=== PATIENT | female | born 2000 | race Two or more races ===

== ENCOUNTER 2024-12-13 02:31 | Emergency (ER) | payer MEDICAID ==
[~2024-12-13] VITALS: Ht 162.6 cm; Wt 70.8 kg
[2024-12-13] MEDS ORDERED: ONDANSETRON HCL/PF 4 MG/2 ML VIAL ONE ×2 (04:40→06:14)
[2024-12-13] MEDS: IV NS 0.9% 1,000 ML BAG IV ONE ×2 (04:53→06:22)
[2024-12-13] MEDS: ONDANSETRON HCL/PF 4 MG/2 ML VIAL IV ONE ×2 (04:53→06:22)
[2024-12-13 04:58] LABS: BASOPHILS % (AUTO) 0.1 % (0.0-2.0); EOSINOPHILS % (AUTO) 0.1 % (0.0-6.0); HEMATOCRIT 51 % (33-45); LYMPHOCYTES # (AUTO) 0.8 K/uL (0.8-4.8); LYMPHOCYTES % (AUTO) 3.8 % (20.0-44.0); MEAN CORPUSCULAR HEMOGLOBIN 32 PG (26.0-33.0); MEAN CORPUSCULAR HGB CONC 34 g/dl (31.0-36.0); MEAN CORPUSCULAR VOLUME 95 fL (82-100); MONOCYTES # (AUTO) 1.6 K/uL (0.1-1.30); MONOCYTES % (AUTO) 7.9 % (2.0-12.0); NEUTROPHILS # (AUTO) 18.1 K/uL (1.8-8.9); NEUTROPHILS % (AUTO) 88.1 % (43.0-81.0); PLATELET COUNT (AUTO) 368 K/uL (150-450); RED BLOOD CELL COUNT(AUTO) 5.37 MIL/uL (4.0-5.2); RED CELL DISTRIBUTION WIDTH 14.3 % (11.5-15.0); WHITE BLOOD COUNT (AUTO) 20.5 K/uL (4.3-11.0)
[2024-12-13 05:05] LABS: CALCIUM, SERUM 9.4 mg/dL (8.5-10.1); CREATININE 0.6 mg/dL (0.6-1.3); POTASSIUM 3.7 mmol/L (3.5-5.1)
[2024-12-13] MEDS ORDERED: ALPRAZOLAM 0.25 MG TABLET ONE (06:14)
[2024-12-13] MEDS: ALPRAZOLAM 0.25 MG TABLET PO ONE (06:22)
[2024-12-13] MEDS ORDERED: ONDA4TAB5 PO (06:40)
[2024-12-13] MEDS ORDERED: PROPRANOLOL HCL 10 MG TABLET ONE (07:19)
[2024-12-13] MEDS: PROPRANOLOL HCL 10 MG TABLET PO SCH (07:49)
[2024-12-13 08:00] VITALS: BP 117/70; TEMP 98.1; O2SAT 99
[2024-12-13] MEDS ORDERED: PROPRANOLOL HCL 10 MG TABLET PO SCH (09:00)
== END 2024-12-13 08:01 | disposition home or self-care (01) ==
LOC: EDBD 02:38 → IVT 02:38
DX: F41.0 Panic disorder [episodic paroxysmal anxiety] (principal); E86.0 Dehydration; R11.2 Nausea with vomiting, unspecified; F10.90 Alcohol use, unspecified, uncomplicated; R00.0 Tachycardia, unspecified; Y90.9 Presence of alcohol in blood, level not specified; Z88.0 Allergy status to penicillin
CPT/HCPCS: 99285; 96374; 96361; 71045; 93005; 96376; 85025; 80048; 36415; J2405 ×4; J7030 ×4